=== PATIENT | female | born 2005 | race Caucasian/White ===

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

== ENCOUNTER 2024-09-29 09:58 | Emergency (ER) | payer OTHER ==
[~2024-09-29] VITALS: Ht 170.2 cm; Wt 60.0 kg
--- NOTE | 2024-09-29 10:35 | ED.PDOC ---
Altered Mental Status HPI Comments 18-year old female, with no PMH, currently 13-weeks , presented in the ED with complaints of Syncope. 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 She started feeling nauseous, and dizzy and then lost consciousness. Patient was observed by the customer in the car and per EMS, patient hit her head on the right side with the car, and later EMS was called. As per EMS, patient lost consciousness for about a minute and has been feeling "fuzzy" after the event. Patient does not remember what time the event happened but is alert and oriented x4. She is mentioning of mild dizziness and mild headache. She denied any episode of vomiting after the fall. She did not have any episode of seizure-like activity . She denied any chest pain, shortness of breath, diarrhea, constipation, burning micturition, any motor/sensory deficit. He also denied any significant event in the Past medical history Denied Past surgical history Denied Medication history Denied Social history Denies smoking, alcohol, marijuana or any other drug intake Allergic history No known allergies Family history Denied any cardiac or neurological history in the family Review of system As described in the HPI Examination General Appearance: Alert, Oriented X3, Cooperative, No acute distress Eyes : no scleral icterus, no discharge, no erythema Respiratory: Clear to auscultation, Normal air movement, no wheezing, no crac kles Cardiovascular: Regular rate, Normal S1, Normal S2, no murmurs, no S3, no S4 Abdominal: Normal bowel sounds, soft, no abdominal tenderness, no guarding, no rigidity Extremities: No cyanosis, No edema, Normal pulses, No tenderness/swelling Skin: No rashes, No breakdown Neuro: Normal gait, normal speech, normal strength, no sensory deficit, no motor deficit, cranial nerves grossly intact Chief Complaint: Syncope Time Seen by MD: 10:17 Primary Care Provider: JUDITH De La Vega 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 Allergies: Coded Allergies: NO KNOWN ALLERGIES (Unverified , 07/16/15) Home Meds Active Scripts Acetaminophen (Acetaminophen Er) 650 Mg Tab, 650 MG PO QIDP for 3 Days, #12 TAB Prov:NATALIYA BERGER RESIDENT 09/29/24 Information Source: Patient Mode of Arrival: EMS Differential Diagnosis (ALOC) Differential Diagnosis: Dehydration, Hypoglycemia, CVA Other Differential Diagnosis vasovagal syncope, situational syncope, cardiac syncope, pulmonary embolism X-Ray, Labs, Meds, VS Vital Signs Date Time Temp Pulse Resp B/P (MAP) Pulse Ox O2 Delivery O2 Flow Rate FiO2 09/29/24 14:48 98.1 78 15 106/67 (80) 98 98.1 09/29/24 10:06 95 09/29/24 10:00 99.0 108 16 105/70 (82) 99 Lab Test 09/29/24 11:34 09/29/24 11:15 09/29/24 10:43 Range/Units Troponin I High Sensitivity < 3 L < 3 L </=34 ng/L Urine Color Colorless Yellow Urine Clarity Clear Clear Urine pH 6.5 5.0-9.0 Urine Specific [place] 1.006 1.001-1.035 Urine Protein Negative Negative Urine Ketones Negative Negative Urine Blood Negative Negative /uL Urine Nitrite Negative Negative Urine Bilirubin Negative Negative Urine Urobilinogen Normal Negative mg/dL Urine Leukocyte Esterase Negative Negative /uL Urine RBC None seen 0 - 4 /hpf Urine WBC 1 0 - 5 /hpf Urine Squamous Epithelial Cells Few <5 /hpf Urine Bacteria None seen None Seen /hpf Urine Glucose Normal Normal mg/dL White Blood Count 8.3 4.4-10.8 10^3/uL Red Blood Count 4.11 4.0-5.20 10^6/uL Hemoglobin 11.7 L 12.2-16.2 g/dL Hematocrit 34.6 L 36.0-46.0 % Mean Corpuscular Volume 84.2 80.0-100.0 fL Mean Corpuscular Hemoglobin 28.5 28.0-32.0 pg Mean Corpuscular Hemoglobin Concent 33.9 32.0-36.0 g/dL Red Cell Distribution Width 16.6 H 11.8-14.3 % Platelet Count 225 140-450 10^3/uL Mean Platelet Volume 8.0 6.9-10.8 fL Neutrophils (%) (Auto) 78.2 37.0-80.0 % Lymphocytes (%) (Auto) 13.1 10.0-50.0 % Monocytes (%) (Auto) 7.4 0.0-12.0 % Eosinophils (%) (Auto) 0.7 0.0-7.0 % Basophils (%) (Auto) 0.6 0.0-2.0 % Neutrophils # (Auto) 6.5 1.6-8.6 10 ^3/uL Lymphocytes # (Auto) 1.1 0.4-5.4 10 ^3/uL Monocytes # (Auto) 0.6 0-1.3 10 ^3/uL Eosinophils # (Auto) 0.1 0-0.8 10 ^3/uL Basophils # (Auto) 0 0-0.2 10 ^3/uL Nucleated Red Blood Cells 0.1 % Prothrombin Time 10.7 9.3-11.8 sec Prothrombin Time INR 1.01 0.9-1.15 Activated Partial Thromboplast Time 25.0 24.5-34.5 SEC D-Dimer, Quantitative 0.64 H 0.0-0.49 mg/L FEU Sodium Level 138 136-145 mmol/L Potassium Level 4.2 3.5-5.1 mmol/L Chloride Level 110 H 98-107 mmol/L Carbon Dioxide Level 22 20-31 mmol/L Anion Gap 6 5-15 Blood Urea Nitrogen 7 L 9-23 mg/dL Creatinine 0.64 0.550-1.02 mg/dL Glomerular Filtration Rate Calc 130 >90 mL/min BUN/Creatinine Ratio 10.9 10.0-20.0 Serum Glucose 86 74-106 mg/dL Calcium Level 8.0 L 8.7-10.4 mg/dL B-Type Natriuretic Peptide 21.80 0-100 pg/mL Current Medications Medications (Trade) Dose Ordered Sig/Radha Route Start Time Stop Time Status Last Admin Sodium Chloride 1,000 ml @ 1,000 mls/hr Q1H ONCE IV 09/29/24 10:45 09/29/24 11:44 DC 09/29/24 10:45 Acetaminophen (Tylenol Tablet) 650 mg ONCE ONCE PO 09/29/24 11:00 09/29/24 11:01 DC 09/29/24 11:23 X-Ray, Labs, Meds, VS Comment Addendum by Dr. Cece Garcia: Patient seen in conjunction with resident Armando. Agree with assessment, treatment and plan. Although D-dimer is elevated, patient is not tachycardic, hypotensive, hypoxic, complaining of extremity edema or pain, and is ambulatory without difficulty after IV fluids. Suspicion for PE is low. Patient has no focal neurologic deficit on exam, and head pain has improved with Tylenol. Suspicion for skull fracture or intracranial hemorrhage is also low. Patient appears stable for discharge with close outpatient follow-up. Time of 1ST Reevaluation: 14:12 (Patient is currently feeling mild foggy but denied any dizziness, headache) Reevaluation 1ST: Improved Patient Education/Counseling: Diagnosis, Treatment Family Education/Counseling: No Family Present Comments Patient presented with syncope, workup was initiated. EKG did not reveal any significant findings. Patient was given IV fluids Patient's labs did not show any significant abnormality. Patient D-dimer was mildly elevated, 0.64 but patient's BNP and troponins were within normal limits. EKG did not show any RV strain pattern. Patient was not having any tachypnea, respiratory distress, leg swelling, erythema. Patient's tachycardia improved significantly after IV fluid. Patient has been observed in the ED adequate length of time to insure improvement/stability. She did not mentioning of any dizziness later in the ER even on walking. Patient was discharged to home and was prescribed acetaminophen for mild headache, was advised to come to the ER if symptoms change or worsens. Departure 1 Departure Time of Disposition: 14:42 Impression: Primary Impression: Vasovagal syncope Disposition: 01 HOME / SELF CARE / HOMELESS Condition: Stable Additional Instructions: Additional Discharge instructions You MUST follow-up with your primary care/family doctor in 1 to 2 days. If you are unable to see your primary care/family doctor, please return to our emergency room for re-assessment and re-evaluation in 1 to 2 days. Return to the emergency room here in our facility or to the nearest ER [facility] if your symptoms change or worsens. e-Prescriptions Acetaminophen (Acetaminophen Er) 650 Mg Tab 650 MG PO QIDP for 3 Days, #12 TAB Prov: NATALIYA BERGER RESIDENT 09/29/24 Discharged With: Self Heart Score Heart Score: Heart Score Response (Comments) Value History N/A 0 EKG Normal 0 Age <45 0 Risk Factors No known risk factors 0 Troponin Normal limit 0 Total 0 NATALIYA BERGER RESIDENT Sep 29, 2024 10:35 ISMAEL CARLOS MD Sep 29, 2024 14:35
[2024-09-29] MEDS: SODIUM CHLORIDE 0.9% 1,000 ML IV ONE (10:45)
[2024-09-29 11:02] LABS: Basophils # (auto) 0 10 ^3/uL (0-0.2); Basophils % (auto) 0.6 % (0.0-2.0); Eosinophils # (auto) 0.1 10 ^3/uL (0-0.8); Eosinophils % (auto) 0.7 % (0.0-7.0); Hematocrit 34.6 % (36.0-46.0); Hemoglobin 11.7 g/dL (12.2-16.2); Lymphocytes # (auto) 1.1 10 ^3/uL (0.4-5.4); Lymphocytes % (auto) 13.1 % (10.0-50.0); Mean Corpuscular Hemoglobin 28.5 pg (28.0-32.0); Mean Corpuscular Hgb Conc. 33.9 g/dL (32.0-36.0); Mean Corpuscular Volume 84.2 fL (80.0-100.0); Monocytes # (auto) 0.6 10 ^3/uL (0-1.3); Monocytes % (auto) 7.4 % (0.0-12.0); Neutrophils # (auto) 6.5 10 ^3/uL (1.6-8.6); Neutrophils % (auto) 78.2 % (37.0-80.0); Nucleated Red Blood Cells % 0.1 %; Platelet Count (auto) 225 10^3/uL (140-450); Red Blood Cells 4.11 10^6/uL (4.0-5.20); Red Cell Distribution Width 16.6 % (11.8-14.3); White Blood Cell 8.3 10^3/uL (4.4-10.8)
[2024-09-29 11:07] LABS: Chloride 110 mmol/L (98-107); Potassium 4.2 mmol/L (3.5-5.1); Sodium 138 mmol/L (136-145)
[2024-09-29 11:08] LABS: Anion Gap 6 (5-15); Carbon Dioxide 22 mmol/L (20-31)
[2024-09-29 11:13] LABS: BUN/Creatinine Ratio 10.9 (10.0-20.0); Blood Urea Nitrogen 7 mg/dL (9-23); Glucose 86 mg/dL (74-106)
[2024-09-29 11:21] LABS: INR 1.01 (0.9-1.15); Prothrombin Time 10.7 sec (9.3-11.8)
[2024-09-29] MEDS: ACETAMINOPHEN 325 MG TAB PO ONE (11:23)
[2024-09-29 11:46] LABS: Urine Blood Negative /uL (Negative); Urine Clarity Clear (Clear); Urine Color Colorless (Yellow); Urine Protein, UAD Negative (Negative); Urine Specific Gravity 1.006 (1.001-1.035); Urine Urobilinogen Normal (Negative); Urine WBC 1 /hpf (0 - 5); Urine pH 6.5 (5.0-9.0)
--- NOTE | 2024-09-29 12:35 | ECG ---
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
[2024-09-29 12:57] LABS: Urine Bacteria None Seen /hpf (None Seen)
[2024-09-29] MEDS ORDERED: ACET650T12 PO (14:39)
[2024-09-29 14:48] VITALS: BP 106/67; PULSE 78; RESP 15; TEMP 98.1; O2SAT 98
== END 2024-09-29 14:52 | disposition home or self-care (01) ==
LOC: EDBD 09:58 → ER 09:58
DX: O26.891 Other specified pregnancy related conditions, first trimester (principal); R55 Syncope and collapse; R41.82 Altered mental status, unspecified; R51.9 Headache, unspecified; R42 Dizziness and giddiness; Z3A.13 13 weeks gestation of pregnancy
CPT/HCPCS: 36415; 80048; 81001; 83880; 84484; 85025; 85379; 85610; 85730; 93005; 96360; 99284; J7030

== ENCOUNTER 2024-11-27 16:07 | Observation (INO) | payer OTHER ==
[~2024-11-27 16:07] MED LIST: ACET650T12 PO
--- NOTE | 2024-11-28 12:46 | DVHDS2 ---
Physician Discharge Progress N Final Diagnosis: cramping Operations or Procedures: Operations or Procedures nst,sono Condition on Discharge: Good Disposition: Home Discharge Instructions: Diet: Regular Activity: No Restrictions, As Tolerated Medications: na Follow Up Care: Specialist: 3d Discharge Statement: "Patient was advised to return to the ER or call 911 if any headaches, dizziness, shortness of breath, chest pain, abdominal pain, bleeding, fevers, or worsening of medical condition. Patient was counseled about treatment plan, medications, possible side effects, patientverbalized understanding. All questions were answered to the best of my ability. This discharge took greater then 30 minutes in planning, reviewing documentation, counseling the patient, and discussing with other team members." BAL SCHMITZ DO Nov 28, 2024 12:46
== END 2024-11-27 17:52 | disposition home or self-care (01) ==
LOC: ER 16:07 → LDRP 16:23 → UNDOADMOB 16:23 → LDRP 16:37 → UNDODISOB 17:52
PROVIDERS: ADMIT Obstetrics & Gynecology; ATTEND Obstetrics & Gynecology
DX: O62.9 Abnormality of forces of labor, unspecified (principal); Z3A.22 22 weeks gestation of pregnancy; Z79.899 Other long term (current) drug therapy; Z98.890 Other specified postprocedural states
CPT/HCPCS: 59025; 81002; 94760; G0378